=== PATIENT | male | born 1960 | race Caucasian/White ===

== ENCOUNTER 2022-12-25 15:05 | Inpatient (IN) | payer MEDICARE, OTHER ==
[~2022-12-25 15:05] MED LIST: Iopamidol 370 76% 100 ML VIAL ONE
[2022-12-25 15:43] LABS: #Basophils 0.1 10x3/uL (0.0-0.2); #Eosinphils 0.1 10x3/uL (0.0-0.5); #Monocytes 0.5 10x3/uL (0.0-1.1); #Neutrophils 8.5 10x3/uL (1.5-8.4); %Basophils 0.6 % (0.0-2.0); %Eosinophils 0.9 % (0.0-6.0); %Lymphocytes 12.9 % (18.0-47.0); %Monocytes 4.8 % (0.0-10.0); %Neutrophils 80.3 % (40.0-75.0); Hematocrit 43.5 % (38.8-50.0); Hemoglobin 14.6 g/dL (13.5-17.5); Mean Corpuscular HGB CONC 33.6 g/dL (32.0-36.0); Mean Corpuscular Hemoglobin 31.4 pg (27.0-33.0); Mean Corpuscular Volume 93.5 fl (81.2-95.1); Mean Platelet Volume 9.7 fl (7.4-10.4); Platelet Count 299 10x3/uL (150-450); RBC Distribution Width 13.2 % (11.5-14.5); Red Blood Cell (RBC) Count 4.65 10x6/uL (4.32-5.72); White Blood Cell (WBC) Count 10.5 10x3/uL (3.5-10.5)
[2022-12-25 15:52] LABS: INR-International Normal Ratio 0.9; PTT 27.5 sec (22.0-33.0); Prothrombin Time 10.1 sec (9.5-12.1)
[2022-12-25 16:14] LABS: ALT (SGPT) 35 U/L (8-55); AST (SGOT) 37 U/L (5-34); Albumin 4.3 g/dL (3.5-5.0); Alcohol Less than 10.0 mg/dL (Less than 10); Alkaline Phosphatase 60 U/L (40-110); Anion Gap 17 mmol/L (10-20); BUN (Urea Nitrogen) 8 mg/dL (8.4-25.7); Bilirubin, Total 0.6 mg/dL (0.2-1.2); Calc. Creatinine Clearance 0 mL/min (70-130); Calcium 9.5 mg/dL (7.8-10.44); Carbon Dioxide 22 mmol/L (22-29); Chloride 99 mmol/L (98-107); Estimated GFR 59; Globulin 3.7 g/dL (2.4-3.5); Glucose 193 mg/dL (70-105); Magnesium 2.1 mg/dL (1.6-2.6); Potassium 3.7 mmol/L (3.5-5.1); Sodium 134 mmol/L (136-145)
[2022-12-25 16:15] LABS: Troponin I Less than 0.010 ng/mL (< 0.028)
[2022-12-25] MEDS ORDERED: Aspirin 81 mg Enteric Coated Tablet ONE (17:30)
[2022-12-25] MEDS ORDERED: Aspirin Chewable 81 MG TAB ONE (17:34)
[2022-12-25] MEDS ORDERED: Ondansetron ODT 4 MG TAB PO PRN (18:30)
[2022-12-25] MEDS ORDERED: hydrALAZINE 20 MG/ML VIAL SLOW IVP PRN (18:30)
[2022-12-25] MEDS ORDERED: Acetaminophen 325 MG TAB PO PRN (18:30)
[2022-12-25] MEDS ORDERED: Dextrose 5% in Water 1,000 ML IV PRN (19:17)
[2022-12-25] MEDS ORDERED: Dextrose 50% Abboject 50 ML SYRINGE SLOW IVP PRN (19:17)
[2022-12-25] MEDS ORDERED: Glucagon 1 MG/ML KIT IM PRN (19:17)
[2022-12-25] MEDS ORDERED: Insulin Regular 300 UNITS/3 ML VIAL SC PRN (19:17)
[2022-12-25] MEDS: Famotidine 20 MG TAB PO SCH (21:50)
[2022-12-25] MEDS: Atorvastatin Calcium 40 MG TAB PO SCH (21:50)
[2022-12-25 23:07] VITALS: BMI 23.8
[2022-12-26 05:38] LABS: #Basophils 0.1 10x3/uL (0.0-0.2); #Eosinphils 0.1 10x3/uL (0.0-0.5); #Monocytes 0.8 10x3/uL (0.0-1.1); %Eosinophils 1.2 % (0.0-6.0); %Lymphocytes 13.6 % (18.0-47.0); %Monocytes 9.7 % (0.0-10.0); %Neutrophils 74.1 % (40.0-75.0); Hematocrit 41.4 % (38.8-50.0); Hemoglobin 13.8 g/dL (13.5-17.5); Mean Corpuscular HGB CONC 33.3 g/dL (32.0-36.0); Mean Corpuscular Hemoglobin 31.3 pg (27.0-33.0); Mean Corpuscular Volume 93.9 fl (81.2-95.1); Mean Platelet Volume 9.9 fl (7.4-10.4); Platelet Count 250 10x3/uL (150-450); RBC Distribution Width 13.2 % (11.5-14.5); Red Blood Cell (RBC) Count 4.41 10x6/uL (4.32-5.72); White Blood Cell (WBC) Count 8.1 10x3/uL (3.5-10.5)
[2022-12-26 05:48] LABS: ALT (SGPT) 26 U/L (8-55); AST (SGOT) 24 U/L (5-34); Albumin 3.6 g/dL (3.5-5.0); Alkaline Phosphatase 54 U/L (40-110); Anion Gap 13 mmol/L (10-20); BUN (Urea Nitrogen) 7 mg/dL (8.4-25.7); Bilirubin, Total 0.7 mg/dL (0.2-1.2); Calc. Creatinine Clearance 71 mL/min (70-130); Calcium 8.8 mg/dL (7.8-10.44); Carbon Dioxide 24 mmol/L (22-29); Chloride 105 mmol/L (98-107); Estimated GFR 82; Globulin 3.2 g/dL (2.4-3.5); Glucose 100 mg/dL (70-105); Potassium 3.7 mmol/L (3.5-5.1); Protein, Total 6.8 g/dL (6.0-8.3); Sodium 138 mmol/L (136-145)
[2022-12-26 06:13] LABS: Cardiac Risk 2.8 (Less than 4.5); Cholesterol 139 mg/dl (< 200 Desired); HDL Cholesterol 50 mg/dL (>60 Neg Risk); LDL Cholesterol, Calculated 79 mg/dL; Triglycerides 48 mg/dL (Less than 150)
[2022-12-26] MEDS: Aspirin 81 mg Enteric Coated Tablet PO SCH (08:40)
[2022-12-26] MEDS: Famotidine 20 MG TAB PO SCH ×2 (08:40→20:26)
[2022-12-26] MEDS: Clopidogrel Bisulfate 75 MG TAB PO SCH (08:40)
[2022-12-26 14:42] LABS: Hemoglobin A1c 5.2 % (4.0-6.0)
[2022-12-26] MEDS: Atorvastatin Calcium 40 MG TAB PO SCH (20:26)
[2022-12-27] MEDS: Famotidine 20 MG TAB PO SCH (08:55)
[2022-12-27] MEDS: Aspirin 81 mg Enteric Coated Tablet PO SCH (08:55)
[2022-12-27] MEDS: Clopidogrel Bisulfate 75 MG TAB PO SCH (08:56)
[2022-12-27 12:14] VITALS: BP 143/78; TEMP 98.1
== END 2022-12-27 14:09 | disposition home or self-care (01) | DRG 65 ==
LOC: CSHERS 15:05 → CSHTELE 20:55 → OBSVTOIN 12-26 20:38
PROVIDERS: ADMIT Family Medicine; ATTEND Family Medicine
DX: I63.9 Cerebral infarction, unspecified (principal); G81.94 Hemiplegia, unspecified affecting left nondominant side; N17.9 Acute kidney failure, unspecified; I10 Essential (primary) hypertension; E78.5 Hyperlipidemia, unspecified; R73.9 Hyperglycemia, unspecified; I25.10 Atherosclerotic heart disease of native coronary artery without angina pectoris; I65.22 Occlusion and stenosis of left carotid artery; Z86.73 Personal history of transient ischemic attack (TIA), and cerebral infarction without residual deficits; Z87.891 Personal history of nicotine dependence; Z95.1 Presence of aortocoronary bypass graft
CPT/HCPCS: 36415; 36416; 70450; 70496; 70498; 70551; 71045; 80053; 80061; 80307; 83036; 83735; 84443; 84484; 85025; 85610; 85730; 93005; 93306; J1650; Q9967